=== PATIENT | female | born 1985 | race African-American/Black ===

== ENCOUNTER 2018-03-07 09:40 | Emergency (ER) | payer SELFPAY ==
[2018-03-07 09:49] VITALS: Ht 162.6 cm
[2018-03-07 10:50] LABS: BASOPHIL % 1.2 % (0-2); PLATELET COUNT 263 x10^3mcL (130-400); RED CELL DISTRIBUTION WIDTH 13.5 % (11.5-14.5)
[2018-03-07 11:16] LABS: ALBUMIN 3.4 g/dL (3.4-5.0); ALKALINE PHOSPHATASE 82 U/L (46-116); ALT/SGPT 38 U/L (14-59); AST/SGOT 40 U/L (15-37); BILIRUBIN TOTAL 0.3 mg/dL (0.20-1.00); C REACTIVE PROTEIN 0.4 mg/dL (<=0.9); CALCIUM 9.5 mg/dL (8.5-10.1); CARBON DIOXIDE 27.9 mmol/L (21-32); CHLORIDE SERUM 102 mmol/L (98-107); CREATININE SERUM 0.8 mg/dL (0.6-1.0); GFR1 > 60 mL/min; GLUCOSE SERUM 73 mg/dL (74-106); POTASSIUM SERUM 4.2 mmol/L (3.5-5.1); SODIUM SERUM 138 mmol/L (136-145); TOTAL PROTEIN, SERUM 7.4 g/dL (6.4-8.2)
[2018-03-07 11:37] LABS: ERYTHROCYTE SED RATE 16 mm/hr (0-20)
[2018-03-07 12:47] VITALS: BP 141/78
== END 2018-03-07 12:47 | disposition home or self-care (01) ==
LOC: ED 09:40
PROVIDERS: Specialist
DX: N60.01 Solitary cyst of right breast (principal); Z88.1 Allergy status to other antibiotic agents
CPT/HCPCS: 36415; 76641